=== PATIENT | male | born 1940 | race Caucasian/White ===

== ENCOUNTER 2023-07-21 11:49 | Outpatient (CLI) | payer OTHER | END 2023-07-21 11:57 | disposition home or self-care (01) | LOC: RAD 11:49 | PROVIDERS: ATTEND Orthopaedic Surgery | DX: M25.562 Pain in left knee (principal) | CPT/HCPCS: 73718 ==

== ENCOUNTER 2024-07-13 10:23 | Outpatient (CLI) | payer OTHER ==
[2024-07-13 11:15] LABS: URINE APPEARANCE Clear; URINE BILIRRUBIN Negative (NEGATIVE); URINE BLOOD Small; URINE COLOR Yellow; URINE GLUCOSE Negative (NEGATIVE); URINE KETONE Negative (NEGATIVE); URINE LEUKOCYTE Negative; URINE NITRATE Negative; URINE PROTEIN Trace (NEGATIVE); URINE UROBILINOGEN 0.2 E.U./dl
[2024-07-13 11:19] LABS: URINE BACTERIA 9.7 uL (0.0-1933); URINE EPITHELIAL CELLS 1.4 uL (0.0-38.8); URINE WBC 4.4 uL (0.0-23.2)
[2024-07-13 11:23] LABS: HEMATOCRIT 25.3 % (39.0-48.0); MEAN CELL VOLUME 89.1 fL (80.0-100.00); MEAN CORPUSCULAR HGB CONC 34.5 g/dl (32.0-36.0); PLATELET COUNT 229 K/uL (150-450); RED BLOOD COUNT 2.84 M/uL (4.00-6.00); RED CELL DISTRIBUTION WIDTH 13.7 % (11.5-14.5)
[2024-07-13 11:24] LABS: HEMOGLOBIN 8.7 g/dL (13-16.00); MEAN CORPUSCULAR HEMOGLOBIN 30.6 pg (27.00-32.0)
[2024-07-13 11:25] LABS: URINE CAST 1.03 uL (0.0-1.40); URINE RBC 1.1 uL (0.0-20.8)
[2024-07-13 11:34] LABS: CREATININE URINE RANDOM 48.3 MG/DL (30-125)
[2024-07-13 12:33] LABS: ALBUMIN 3.4 gm/dL (3.4-5.0); CALCIUM 12.5 mg/dL (8.5-10.1); CHOL HDL RATIO 2.8 (0-5.0); CREATININE SERUM 3.65 mg/dL (0.70-1.30); GFR 16.1; PHOSPHOROUS 5.8 mg/dL (2.5-4.9); POTASSIUM 5.2 mEq/L (3.5-5.1)
== END 2024-07-13 10:29 | disposition home or self-care (01) ==
LOC: LAB 10:23
PROVIDERS: ATTEND Orthopaedic Surgery
DX: E78.5 Hyperlipidemia, unspecified (principal); N18.31 Chronic kidney disease, stage 3a; I10 Essential (primary) hypertension; E11.22 Type 2 diabetes mellitus with diabetic chronic kidney disease; R80.9 Proteinuria, unspecified; Z12.5 Encounter for screening for malignant neoplasm of prostate

== ENCOUNTER 2024-07-25 10:49 | Outpatient (CLI) | payer OTHER | END 2024-07-25 10:53 | disposition home or self-care (01) | LOC: SONOGRAMA 10:49 | PROVIDERS: ATTEND Internal Medicine Nephrology | DX: N18.32 Chronic kidney disease, stage 3b (principal); N40.0 Benign prostatic hyperplasia without lower urinary tract symptoms ==